=== PATIENT | female | born 1990 | race Caucasian/White ===

== ENCOUNTER 2019-10-06 10:45 | Outpatient (CLI) | payer BC | END 2019-10-06 11:40 | disposition home or self-care (01) | LOC: LC 10:45 | PROVIDERS: ATTEND Obstetrics & Gynecology | PROC: 4A1HXCZ Monitoring of Products of Conception, Cardiac Rate, External Approach (ICD-10-PCS; principal; 2019-10-06) | DX: Z34.93 Encounter for supervision of normal pregnancy, unspecified, third trimester (principal); Z3A.35 35 weeks gestation of pregnancy | CPT/HCPCS: 59025 ==

== ENCOUNTER 2019-10-12 08:37 | Inpatient (IN) | payer BC ==
[2019-10-12] MEDS ORDERED: RINGERS SOLUTION,LACTATED 1,000 ML IV ONE (09:14)
[2019-10-12] MEDS ORDERED: ALBUTEROL SULFATE 0.083% NEB 2.5 MG/3 ML AMPUL NEB ONE ×2 (09:21→09:37)
--- NOTE | 2019-10-12 09:35 | Admission Physical ---
Datetime Report Generated by CPN: 10/12/2019 09:35 CURRENT ADMISSION Chief Complaint: Sent from OB Office for Evaluation and Treatment - Please Specify Chief Complaint Other: patient with recent dx and treatment for bronchitis. Has had CHTN/GHTN throughout . severe range BPs at office. Sent for eval of bronchitis and Pre E workup. 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 indicates a sick child at home with an ear infection. Admit Impression : , Intrauterine Admit Plan: Admit to Unit; Observation/Evaluation ALLERGIES Medication Allergies: No Medication Allergies: No Known Allergies (10/12/2019) Latex: No Latex Allergies OBSTETRICAL HISTORY EDC: 11/04/2019 00:00 : 3 Para: 2 Term: 2 : 0 SAB: 0 IAB: 0 Ectopic: 0 Livin Cesareans: 0 VBACs: 0 Multiple Births: 0 PHYSICAL EXAM General: Normal HEENT: Normal Neurologic: Normal Thyroid: Normal Heart: Normal Lungs: Normal Breast: Normal Back: Normal Abdomen: Normal Genitourinary Exam: Normal Extremities: Normal DTRs: Normal Pelvic Type: Adequate Vital Signs: Reviewed FETUS A EGA: 36.5 Monitoring: External US FHR- Baseline: 140 Variability: Moderate 6-25bpm Accelerations: 15X15 Decelerations: None FHR Category: Category I Estimated Weight (gm): 3000 Admit Comment: admit for Pre E workup and evaluation for possible flu. Quarantine precautions. Nebulizer, CXR and labs ordered. Start Tamiflu although symptoms have been present greater than 5 days. INFORMED CONSENT Signature: with User ID: [email or web address]
[2019-10-12 10:12] LABS: ABSOLUTE EOSINOPHILS # (AUTO) 0.4 10^3/uL (0.0-0.6); ABSOLUTE LYMPHOCYTES (AUTO) 1.4 10^3/uL (0.5-4.7); ABSOLUTE MONOCYTES (AUTO) 0.7 10^3/uL (0.1-1.4); ABSOLUTE NEUT (AUTO) 7.4 10^3/uL (1.7-8.2); BASOPHILS % (AUTO) 0.5 % (0-2); EOSINOPHILS % (AUTO) 4.2 % (0-6); HEMATOCRIT 31.1 % (36.0-47.0); HEMOGLOBIN 10.6 g/dL (12.0-15.5); LYMPHOCYTES % (AUTO) 14.4 % (13-45); MEAN CORPUSCULAR HEMOGLOBIN 29.9 pg (27.0-33.4); MEAN CORPUSCULAR HGB CONC 34.2 g/dL (32.0-36.0); MEAN CORPUSCULAR VOLUME 88 fl (80-97); MONOCYTES % (AUTO) 7.2 % (3-13); PLATELET COUNT 267 10^3/uL (150-450); RED BLOOD COUNT 3.55 10^6/uL (3.72-5.28); RED CELL DISTRIBUTION WIDTH 15.4 % (11.5-14.0); SEGMENTED NEUTROPHILS % (AUTO) 73.7 % (42-78); TOTAL CELLS COUNTED % (AUTO) 100 %; WHITE BLOOD COUNT 10.1 10^3/uL (4.0-10.5)
[2019-10-12 10:22] LABS: A TYPE INFLUENZA AG NEGATIVE (NEGATIVE); B INFLUENZA AG NEGATIVE (NEGATIVE)
[2019-10-12 10:24] LABS: UR PRO/CREAT RATIO RESULT 0.6 mg/mg (0.0-0.2); URINE CREATININE 30.6 mg/dL (16-327); URINE PROTEIN 18.1 mg/dL (<12)
[2019-10-12 10:29] LABS: ALBUMIN 3.3 g/dL (3.5-5.0); ALKALINE PHOSPHATASE 131 U/L (38-126); ANION GAP 8 (5-19); ASPARTATE AMINO TRANSFERASE 24 U/L (14-36); BILIRUBIN,DIRECT 0.3 mg/dL (0.0-0.4); BILIRUBIN,TOTAL 0.4 mg/dL (0.2-1.3); BLOOD UREA NITROGEN 8 mg/dL (7-20); CALCIUM 8.6 mg/dL (8.4-10.2); CARBON DIOXIDE 22 mmol/L (22-30); CHLORIDE 104 mmol/L (98-107); GLUCOSE 116 mg/dL (75-110); POTASSIUM 3.8 mmol/L (3.6-5.0); TOTAL PROTEIN 6.4 g/dL (6.3-8.2); URIC ACID 4.5 mg/dL (2.5-6.2)
--- NOTE | 2019-10-12 10:33 | RADIOLOGY REPORT (SQ) ---
EXAM DESCRIPTION: CHEST SINGLE VIEW COMPLETED DATE/TIME: 10/12/2019 10:21 am REASON FOR STUDY: bronchitis COMPARISON: None. EXAM PARAMETERS: NUMBER OF VIEWS: One view. TECHNIQUE: An AP view of the chest was obtained. RADIATION DOSE: NA LIMITATIONS: None. FINDINGS: LUNGS AND PLEURA: No consolidation, pleural effusion or pneumothorax. MEDIASTINUM AND HILAR STRUCTURES: No mediastinal or hilar contour abnormality. HEART AND VASCULAR STRUCTURES: The cardiac silhouette and pulmonary vasculature are within normal lugo its. BONES: No acute findings. HARDWARE: None in the chest. OTHER: No other finding. IMPRESSION: No acute cardiopulmonary process. TECHNICAL DOCUMENTATION: JOB ID: [id number] 2011 [employer]- All Rights Reserved Reading location - IP/workstation name: [email or web address]
[2019-10-12] MEDS: OSELTAMIVIR PHOSPHATE 75 MG CAPSULE PO SCH ×2 (10:52→18:16)
[2019-10-12] MEDS: BENZONATATE 100 MG CAPSULE PO PRN (15:24)
[2019-10-13] MEDS ORDERED: BETAMET ACET/BETAMET NA INJ 6 MG/1 ML ONE ×3 (08:12→22:37)
[2019-10-13] MEDS ORDERED: BETAMET ACET/BETAMET NA INJ 6 MG/1 ML IM ONE (08:14)
[2019-10-13 08:22] LABS: ABSOLUTE BASOPHILS # (AUTO) 0.1 10^3/uL (0.0-0.2); ABSOLUTE EOSINOPHILS # (AUTO) 0.4 10^3/uL (0.0-0.6); ABSOLUTE LYMPHOCYTES (AUTO) 1.8 10^3/uL (0.5-4.7); ABSOLUTE MONOCYTES (AUTO) 0.9 10^3/uL (0.1-1.4); ABSOLUTE NEUT (AUTO) 7.1 10^3/uL (1.7-8.2); BASOPHILS % (AUTO) 0.6 % (0-2); EOSINOPHILS % (AUTO) 3.8 % (0-6); HEMATOCRIT 34.3 % (36.0-47.0); HEMOGLOBIN 11.4 g/dL (12.0-15.5); LYMPHOCYTES % (AUTO) 17.6 % (13-45); MEAN CORPUSCULAR HEMOGLOBIN 29.3 pg (27.0-33.4); MEAN CORPUSCULAR HGB CONC 33.3 g/dL (32.0-36.0); MEAN CORPUSCULAR VOLUME 88 fl (80-97); PLATELET COUNT 283 10^3/uL (150-450); RED CELL DISTRIBUTION WIDTH 15.7 % (11.5-14.0); TOTAL CELLS COUNTED % (AUTO) 100 %; WHITE BLOOD COUNT 10.2 10^3/uL (4.0-10.5)
[2019-10-13 08:46] LABS: ALBUMIN 3.4 g/dL (3.5-5.0); ALKALINE PHOSPHATASE 135 U/L (38-126); ANION GAP 5 (5-19); ASPARTATE AMINO TRANSFERASE 24 U/L (14-36); BILIRUBIN,TOTAL 0.6 mg/dL (0.2-1.3); BLOOD UREA NITROGEN 8 mg/dL (7-20); CALCIUM 8.9 mg/dL (8.4-10.2); CARBON DIOXIDE 26 mmol/L (22-30); CHLORIDE 103 mmol/L (98-107); GLUCOSE 71 mg/dL (75-110); POTASSIUM 4.5 mmol/L (3.6-5.0); TOTAL PROTEIN 6.3 g/dL (6.3-8.2)
[2019-10-13] MEDS: BENZONATATE 100 MG CAPSULE PO PRN ×2 (09:49→22:16)
[2019-10-13] MEDS: OSELTAMIVIR PHOSPHATE 75 MG CAPSULE PO SCH ×2 (09:49→17:44)
--- NOTE | 2019-10-13 09:55 | Non Stress Test Report ---
Non Stress Test Datetime Report Generated by CPN: 10/13/2019 09:55 DEMOGRAPHIC EGA NST: 36.6 INDICATION Indication for Study (NST) Other: obs pt, NST q shift VITAL SIGNS Temperature - NST: 98.1 Pulse - NST: 99 RESP - NST: 15 NBPSYS NST: 145 NBPDIA NST: 70 MONITORING Monitor Explained: Monitor Explained; Test Explained; Patient Verbalized Understanding Time on Monitor: 10/13/2019 08:55 Time off Monitor: 10/13/2019 09:47 NST Duration: 52 NST INTERVENTIONS NST Interventions: PO Hydration; IV Fluids; Meal Given; Reposition Patient Physician Notified NST: N Corbett CNM BABY A Movement : Present Contraction Frequency : none FHR Baseline : 145 Accelerations : 15X15 Decelerations : None Variability : Moderate 6-25bpm NST Review: Meets Criteria for Reactive NST NST Review and Verified By : Vicki Herbert RN NST Results: Reactive NST REPORT Report Trigger: Send Report
[2019-10-13] MEDS ORDERED: PENICILLIN G-K 5 MILLION UNIT VIAL ONE (22:27)
[2019-10-14 06:52] LABS: 24 HOUR URINE PROTEIN RESULT 482 mg/day (42-225); URINE PROTEIN 12.1 mg/dL (<12)
[2019-10-14] MEDS: BENZONATATE 100 MG CAPSULE PO PRN ×2 (08:27→18:37)
[2019-10-14 08:57] LABS: ABSOLUTE BASOPHILS # (AUTO) 0.1 10^3/uL (0.0-0.2); ABSOLUTE LYMPHOCYTES (AUTO) 1.8 10^3/uL (0.5-4.7); ABSOLUTE NEUT (AUTO) 12.1 10^3/uL (1.7-8.2); BASOPHILS % (AUTO) 0.7 % (0-2); EOSINOPHILS % (AUTO) 0.1 % (0-6); HEMATOCRIT 35.4 % (36.0-47.0); HEMOGLOBIN 11.6 g/dL (12.0-15.5); LYMPHOCYTES % (AUTO) 11.8 % (13-45); MEAN CORPUSCULAR HEMOGLOBIN 28.9 pg (27.0-33.4); MEAN CORPUSCULAR HGB CONC 32.9 g/dL (32.0-36.0); MEAN CORPUSCULAR VOLUME 88 fl (80-97); MONOCYTES % (AUTO) 6.5 % (3-13); PLATELET COUNT 325 10^3/uL (150-450); RED BLOOD COUNT 4.02 10^6/uL (3.72-5.28); RED CELL DISTRIBUTION WIDTH 16.3 % (11.5-14.0); SEGMENTED NEUTROPHILS % (AUTO) 80.9 % (42-78); TOTAL CELLS COUNTED % (AUTO) 100 %
[2019-10-14] MEDS ORDERED: OXYTOCIN 10 UNIT/ML VIAL ONE (09:08)
[2019-10-14] MEDS ORDERED: MISOPROSTOL 0.2 MG TABLET ONE (09:08)
[2019-10-14] MEDS ORDERED: OXYTOCIN/NORMAL SALINE 20 UNIT/1,000 ML RTUINJ ONE (09:08)
[2019-10-14] MEDS ORDERED: LIDOCAINE 1% INJ-PF (10 MG/ML) 30 ML SDV ONE (09:08)
[2019-10-14 09:11] LABS: ALBUMIN 3.9 g/dL (3.5-5.0); ALKALINE PHOSPHATASE 143 U/L (38-126); ANION GAP 10 (5-19); ASPARTATE AMINO TRANSFERASE 35 U/L (14-36); BILIRUBIN,TOTAL 0.6 mg/dL (0.2-1.3); BLOOD UREA NITROGEN 10 mg/dL (7-20); CALCIUM 9.4 mg/dL (8.4-10.2); CARBON DIOXIDE 24 mmol/L (22-30); CHLORIDE 101 mmol/L (98-107); GLUCOSE 104 mg/dL (75-110); TOTAL PROTEIN 7.2 g/dL (6.3-8.2); URIC ACID 5.7 mg/dL (2.5-6.2)
[2019-10-14] MEDS ORDERED: HYDROXYZINE PAMOATE 50 MG CAPSULE ONE (09:27)
[2019-10-14] MEDS ORDERED: BETAMET ACET/BETAMET NA INJ 6 MG/1 ML ONE (09:56)
[2019-10-14] MEDS ORDERED: HYDROXYZINE PAMOATE 50 MG CAPSULE PO ONE (09:56)
[2019-10-14] MEDS ORDERED: BETAMET ACET/BETAMET NA INJ 6 MG/1 ML IM ONE (09:57)
[2019-10-14] MEDS: OSELTAMIVIR PHOSPHATE 75 MG CAPSULE PO SCH ×2 (10:59→18:28)
[2019-10-14] MEDS ORDERED: EPHEDRINE SULFATE INJ 50 MG/1 ML AMPULE ONE (13:12)
[2019-10-14] MEDS ORDERED: BUPIVACAINE HCL 0.25 % INJ/PF (2.5 MG/1 ML) 30 ML VIAL ONE (13:13)
[2019-10-14] MEDS ORDERED: FENTANYL/BUPIVACAINE/NS/PF 300 MCG/150 ML RTUINJ EPI ONE (13:13)
[2019-10-14] MEDS ORDERED: FENTANYL CITRATE INJ/PF 100 MCG/2 ML AMPUL ONE (13:15)
[2019-10-14] MEDS ORDERED: PSEUDOEPHEDRINE HCL 30 MG TABLET PO PRN (18:35)
[2019-10-14] MEDS ORDERED: MEASLES,MUMPS&RUBELLA VACC/PF 0.5 ML VIAL SUBCUT PRN (18:35)
[2019-10-14] MEDS ORDERED: NA PHOS,M-B/NA PHOS,DI-BA (ADULT) 133 ML ENEMA PR PRN (18:35)
[2019-10-14] MEDS ORDERED: ZOLPIDEM TARTRATE 5 MG TABLET PO PRN (18:35)
[2019-10-14] MEDS ORDERED: BENZOCAINE/MENTHOL AEROSOL SPRAY 56 ML TOP PRN (18:35)
[2019-10-14] MEDS ORDERED: DIPHENHYDRAMINE HCL 25 MG CAPSULE PO PRN (18:35)
[2019-10-14] MEDS ORDERED: PROMETHAZINE HCL 25 MG SUPP.RECT PR PRN (18:35)
[2019-10-14] MEDS ORDERED: ACETAMINOPHEN WITH CODEINE #3 TABLET PO PRN ×2 (18:35)
[2019-10-14] MEDS ORDERED: OXYTOCIN/NORMAL SALINE 20 UNIT/1,000 ML RTUINJ IV PRN (18:35)
[2019-10-14] MEDS ORDERED: ACETAMINOPHEN 650 MG SUPP.RECT PR PRN (18:35)
[2019-10-14] MEDS ORDERED: GLYCERIN/WITCH HAZEL LEAF 1 EACH MED..WIPE TP PRN (18:35)
[2019-10-14] MEDS ORDERED: MAGNESIUM HYDROXIDE SUSP 30 ML UDCUP PO PRN (18:35)
[2019-10-14] MEDS ORDERED: DIBUCAINE 1% OINTMENT 28 GM TP PRN (18:35)
[2019-10-14] MEDS ORDERED: PROMETHAZINE HCL INJ 25 MG/1 ML VIAL IV PRN (18:35)
[2019-10-14] MEDS ORDERED: DIPH/PERTUSS(ACELL)/TETANUS VAC/PF 0.5 ML SYR (>=10YO) IM PRN (18:35)
[2019-10-14] MEDS ORDERED: PROMETHAZINE HCL 25 MG TABLET PO PRN (18:35)
[2019-10-14] MEDS ORDERED: FERROUS SULFATE 325 MG TABLET PO ONE (19:57)
[2019-10-14] MEDS ORDERED: IBUPROFEN 800 MG TABLET ONE (19:57)
[2019-10-14] MEDS: FERROUS SULFATE 325 MG TABLET PO SCH (19:59)
[2019-10-14] MEDS: IBUPROFEN 800 MG TABLET PO SCH (19:59)
--- NOTE | 2019-10-14 20:50 | Delivery Summary ---
Del Sum A-C Datetime Report Generated by CPN: 10/14/2019 20:49 DELIVERY PERSONNEL DELIVERY PERSONNEL: [id number] Delivery Doctor:: Delilah Sheehan MD Labor and Delivery Nurse:: Mesha Burden RNheel painter Nurse:: Mindy Flores RN Nursery Nurse:: Aida Santana RN/ AFTER 5 MIN Mannequin Mounter/AUDITING CONTROL CLERK: Bre Ocampo MANAGER [employer] Additional Personnel: : Octavia Aggarwal RN MATERNAL INFORMATION Delivery Anesthesia: Epidural Medications After Delivery: Pitocin Bolus-Please Comment; Pitocin Drip 20 Units/1000ml NSS Meds After Delivery Comment: 20 units in 1000mL NS open bolus Estimated Blood Loss (ml): 100 Delivery QBL: 50 Provider Comments: Called to patients room with complete dilation and +2 station. She pushed through two contractions and delivered viable female . Perineum intact. After delivery of the head, the shoulders and rest of the body delivered easily. She was small but vigorous at delivery. Oral and nasal suctioning. Cord clamping delayed but the cord flow appeared stopped prior to 30 seconds so cord was cut. Infant to mothers chest for skin to skin. After she was placed in warmer, Nursery notified to assess due to work of breathing. Both mother and stable LABOR SUMMARY EDC: 11/04/2019 00:00 No. Babies in Womb: 1 Attempted: No Labor Anesthesia: Epidural LABOR INFORMATION Reason for Induction: Pre-Eclampsia Onset of Labor: 10/14/2019 16:47 Complete Dilatation: 10/14/2019 17:58 Oxytocin: Induction Group B Beta Strep: negative Antibiotics # of Doses: 0 Steroids Given: Full Course Reason Steroids Not Administered: Not Applicable MEMBRANES Membranes Rupture Method: Artificial Rupture of Membranes: 10/14/2019 16:45 Length of Rupture (hr): 1.38 Amniotic Fluid Color: Clear Amniotic Fluid Amount: Moderate STAGES OF LABOR Stage 1 hr: 1 Stage 1 min: 11 Stage 2 hr: 0 Stage 2 min: 10 Stage 3 hr: 0 Stage 3 min: 7 Total Time in Labor hr: 1 Total Time in Labor min: 28 VAGINAL DELIVERY Episiotomy: None Laceration #1: None Laceration Extension #1: N/A Other Laceration: LT SUPERFICIAL LABIAL LAC Laceration Repair: No Sponge Count Correct: N/A Sharps Count Correct: N/A BABY A INFORMATION Infant Delivery Date/Time: 10/14/2019 18:08 Method of Delivery: Vaginal Nurse Controlled Delivery: No Born in Route : No : N/A Forceps: N/A Vacuum Extraction: N/A Shoulder Dystocia : No PRESENTATION/POSITION BABY A Presentation: Cephalic Cephalic Presentation: Vertex Vertex Position: Left Occipital Anterior Breech Presentation: N/A PLACENTA INFORMATION BABY A Placenta Delivery Time : 10/14/2019 18:15 Placenta Method of Delivery: Spontaneous Placenta Status: Delivered SCORES BABY A Heart Rate 1 min: >100 bpm Resp Effort 1 min: Good Cry Reflex Irritability 1 min: Cough or Sneeze or Pulls Away Muscle Tone 1 min: Some Flexion of Extremities Color 1 min: Blue/Pale Resuscitation Effort 1 min: Tactile Stimulation SCORE 1 MIN: 7 Heart Rate 5 min: >100 bpm Resp Effort 5 min: Good Cry Reflex Irritability 5 min: Cough or Sneeze or Pulls Away Muscle Tone 5 min: Some Flexion of Extremities Color 5 min: Body [place], Extremities Blue Resuscitation Effort 5 min: Tactile Stimulation SCORE 5 MIN: 8 INFORMATION BABY A Gestational Age at Delivery: 37.0 Gestational Status: Early Term- 37- 38.6 Weeks Infant Outcome : Liveborn Condition : Stable Infant Sex: Female IDENTIFICATION BABY A Verification Date/Time: 10/14/2019 18:19 ID Band Number: [id number] Mother's Name Verified: Yes Infant RN Verifying Infant: SHAVONNE FLORES, RN/ C DES, RN WEIGHT/LENGTH BABY A Infant Birthweight (gm): 2735 Infant Weight (lb): 6 Infant Weight (oz): 0 Infant Length (in): 18.00 Infant Length (cm): 45.72 CORD INFORMATION BABY A No. Cord Vessels: 3 Nuchal Cord : N/A Cord Blood Taken: Yes-For Storage (Mom's Blood type +) Suction: Mouth; Nose ASSESSMENT BABY A Infant Complications: Multiple Late Decels; Multiple Variable Decels Physical Findings at Delivery: Within Normal Limits Infant Respirations: Appears Normal Skin to Skin: No Staff Developer/ALS Called : No Care By: Filipe AGGARWAL RN/ Rohith BACTAC RN Transferred To: Nursery BABY B INFORMATION : N/A SIGNATURES Signature: with User ID: [email or web address] : with User ID: [email or web address]
[2019-10-14] MEDS ORDERED: FAMOTIDINE 20 MG TABLET ONE (22:04)
[2019-10-14] MEDS: FAMOTIDINE 20 MG TABLET PO SCH (22:05)
[2019-10-15] MEDS: IBUPROFEN 800 MG TABLET PO SCH ×4 (06:00→21:39)
[2019-10-15 06:54] LABS: HEMATOCRIT 32.1 % (36.0-47.0); HEMOGLOBIN 10.9 g/dL (12.0-15.5); MEAN CORPUSCULAR HEMOGLOBIN 30.1 pg (27.0-33.4); MEAN CORPUSCULAR VOLUME 89 fl (80-97); PLATELET COUNT 293 10^3/uL (150-450); RED BLOOD COUNT 3.62 10^6/uL (3.72-5.28); RED CELL DISTRIBUTION WIDTH 16.3 % (11.5-14.0); WHITE BLOOD COUNT 15.9 10^3/uL (4.0-10.5)
[2019-10-15] MEDS: BENZONATATE 100 MG CAPSULE PO PRN ×2 (09:19→17:57)
[2019-10-15] MEDS: DOCUSATE SODIUM 100 MG CAPSULE PO SCH ×2 (09:19→17:53)
[2019-10-15] MEDS: PRENATAL VITAMIN W DHA CAPSULE PO SCH (09:19)
[2019-10-15] MEDS: SENNOSIDES/DOCUSATE 8.6-50 MG 1 EACH TABLET PO SCH (09:19)
[2019-10-15] MEDS: OSELTAMIVIR PHOSPHATE 75 MG CAPSULE PO SCH ×2 (09:19→18:15)
[2019-10-15] MEDS: FAMOTIDINE 20 MG TABLET PO SCH ×2 (09:19→21:39)
[2019-10-15] MEDS: FERROUS SULFATE 325 MG TABLET PO SCH ×2 (09:19→17:53)
--- NOTE | 2019-10-15 10:29 | PDOC PROGRESS REPORT ---
Subjective-OB Progress Note for:: 10/15/19 Subjective: Pt doing well, no concerns. Reports light bleeding, reg diet and voiding without difficulty. Physical Exam (OB) Vital Signs: Temp Pulse Resp BP Pulse Ox 97.6 F 80 22 H 152/75 H 100 10/15/19 07:22 10/15/19 07:22 10/15/19 07:22 10/15/19 07:22 10/15/19 07:22 - PIH/Pre-Eclampsia DTR's: 2 + Clonus: Negative Headache: Absent Epigastric Pain: No Visual Changes: No - Lochia Lochia Amount: Small 10-25 ml Lochia Color: Rubra/Red - Abdomen Description: Soft Hernia Present: No Fundal Description: Firm, Midline Fundal Height: u/u - u/2 Objective-Diagnostic Laboratory: 10/15/19 06:38 10/14/19 08:25 10/14/19 10/15/19 19:17 06:38 WBC 15.9 H RBC 3.62 L Hgb 10.9 L Hct 32.1 L MCV 89 MCH 30.1 MCHC 34.0 RDW 16.3 H Plt Count 293 Blood Type A POSITIVE Antibody Screen NEGATIVE Assessment and Plan(PN) - Assessment and Plan (1) Gestational hypertension Qualifiers: Trimester: third trimester Is this a current diagnosis for this admission?: Yes (2) Vaginal delivery Is this a current diagnosis for this admission?: Yes - Time Spent with Patient Time with patient: Less than 15 minutes Medications reviewed and adjusted accordingly: Yes - Disposition Anticipated Discharge: Home Within: within 24 hours
[2019-10-16] MEDS: IBUPROFEN 800 MG TABLET PO SCH ×2 (07:55→14:10)
[2019-10-16] MEDS: FERROUS SULFATE 325 MG TABLET PO SCH ×2 (09:22→17:27)
[2019-10-16] MEDS: PRENATAL VITAMIN W DHA CAPSULE PO SCH (09:22)
[2019-10-16] MEDS: FAMOTIDINE 20 MG TABLET PO SCH (09:22)
[2019-10-16] MEDS: OSELTAMIVIR PHOSPHATE 75 MG CAPSULE PO SCH ×2 (09:22→17:27)
[2019-10-16] MEDS: SENNOSIDES/DOCUSATE 8.6-50 MG 1 EACH TABLET PO SCH (09:22)
[2019-10-16] MEDS: BENZONATATE 100 MG CAPSULE PO PRN (09:22)
[2019-10-16] MEDS: DOCUSATE SODIUM 100 MG CAPSULE PO SCH ×2 (09:22→17:27)
[2019-10-16 11:48] VITALS: BP 133/79
--- NOTE | 2019-10-16 13:20 | PDOC DISCHARGE SUMMARY ---
Impression - Admit/DC Date/PCP Admission Date/Primary Care Provider: 10/12/19 10:51 BELEN KERN NP Discharge Date: 10/16/19 - Discharge Diagnosis (1) delivery Is this a current diagnosis for this admission?: Yes (2) Upper respiratory infection Is this a current diagnosis for this admission?: Yes (3) Pre-eclampsia Is this a current diagnosis for this admission?: Yes (4) Vaginal delivery Is this a current diagnosis for this admission?: Yes - Additional Information Discharge Diet: Regular Discharge Activity: Activity As Tolerated, Pelvic Rest Referrals: [facility] [Provider Group] (Please call and schedule a 1 week blood pressure check at [facility]. ) Prescriptions: Ibuprofen [Motrin 800 mg Tablet] 800 mg PO Q8HP PRN #60 tablet PRN Reason: Benzonatate [Tessalon Perles 100 mg Capsule] 200 mg PO Q8HP PRN #60 capsule PRN Reason: Home Medications: 95/Iron Fum/Folic/Dha [ + Dha Combo Pack] 1 tab PO DAILY 02/13/16 Albuterol Sulfate [Proair HFA Inhalation Aerosol 8.5 gm MDI] 2 puff IH Q4 PRN 10/06/19 Benzocaine/Menthol [Dermoplast Aerosol [place] 56 ml] 1 applic TOP PRN PRN can 0 10/16/19 Benzonatate [Tessalon Perles 100 mg Capsule] 200 mg PO Q8HP PRN #60 capsule 10/16/19 Ibuprofen [Motrin 800 mg Tablet] 800 mg PO Q8HP PRN #60 tablet 10/16/19 HPI Reason(s) for Admission: Induction of Labor Procedures: NST Intrapartum Procedure(s): Spontaneous Vaginal Delivery Complication(s): Laceration-Labial Results Laboratory Results: WBC 15.9 10^3/uL (4.0-10.5) H 10/15/19 06:38 RBC 3.62 10^6/uL (3.72-5.28) L 10/15/19 06:38 Hgb 10.9 g/dL (12.0-15.5) L 10/15/19 06:38 Hct 32.1 % (36.0-47.0) L 10/15/19 06:38 MCV 89 fl (80-97) 10/15/19 06:38 MCH 30.1 pg (27.0-33.4) 10/15/19 06:38 MCHC 34.0 g/dL (32.0-36.0) 10/15/19 06:38 RDW 16.3 % (11.5-14.0) H 10/15/19 06:38 Plt Count 293 10^3/uL (150-450) 10/15/19 06:38 Lymph % (Auto) 11.8 % (13-45) L 10/14/19 08:25 [place] % (Auto) 6.5 % (3-13) 10/14/19 08:25 Eos % (Auto) 0.1 % (0-6) 10/14/19 08:25 Baso % (Auto) 0.7 % (0-2) 10/14/19 08:25 Absolute Neuts (auto) 12.1 10^3/uL (1.7-8.2) H 10/14/19 08:25 Absolute Lymphs (auto) 1.8 10^3/uL (0.5-4.7) 10/14/19 08:25 Absolute Monos (auto) 1.0 10^3/uL (0.1-1.4) 10/14/19 08:25 Absolute Eos (auto) 0.0 10^3/uL (0.0-0.6) 10/14/19 08:25 Absolute Basos (auto) 0.1 10^3/uL (0.0-0.2) 10/14/19 08:25 Seg Neutrophils % 80.9 % (42-78) H 10/14/19 08:25 Sodium 135.0 mmol/L (137-145) L 10/14/19 08:25 Potassium 4.0 mmol/L (3.6-5.0) 10/14/19 08:25 Chloride 101 mmol/L (98-107) 10/14/19 08:25 Carbon Dioxide 24 mmol/L (22-30) 10/14/19 08:25 Anion Gap 10 (5-19) 10/14/19 08:25 BUN 10 mg/dL (7-20) 10/14/19 08:25 Creatinine 0.46 mg/dL (0.52-1.25) L 10/14/19 08:25 Est GFR ( Amer) > 60 (>60) 10/14/19 08:25 Est GFR (MDRD) Non-Af > 60 (>60) 10/14/19 08:25 Glucose 104 mg/dL (75-110) 10/14/19 08:25 Uric Acid 5.7 mg/dL (2.5-6.2) 10/14/19 08:25 Calcium 9.4 mg/dL (8.4-10.2) 10/14/19 08:25 Total Bilirubin 0.6 mg/dL (0.2-1.3) 10/14/19 08:25 Direct Bilirubin 0.0 mg/dL (0.0-0.4) 10/14/19 08:25 Neonat Total Bilirubin Not Reportable 10/14/19 08:25 Neonat Direct Bilirubin Not Reportable 10/14/19 08:25 Neonat Indirect Bili Not Reportable 10/14/19 08:25 AST 35 U/L (14-36) 10/14/19 08:25 ALT 26 U/L (<35) 10/14/19 08:25 Alkaline Phosphatase 143 U/L (38-126) H 10/14/19 08:25 Lactate Dehydrogenase 194 U/L (120-246) 10/14/19 08:25 Total Protein 7.2 g/dL (6.3-8.2) 10/14/19 08:25 Albumin 3.9 g/dL (3.5-5.0) 10/14/19 08:25 Ur 24 Hour Volume 3980 mL 10/13/19 06:00 Urine Creatinine 30.6 mg/dL (16-327) 10/12/19 08:45 Ur Total Protein 24 Hr 482 mg/day (42-225) H 10/13/19 06:00 Protein/Creatinin Ratio 0.6 mg/mg (0.0-0.2) H 10/12/19 08:45 Urine Total Protein 12.1 mg/dL (<12) H 10/13/19 06:00 RPR NONREACTIVE (NONREACTIVE) 10/14/19 19:17 Influenza A (Rapid) NEGATIVE (NEGATIVE) 10/12/19 09:18 Influenza B (Rapid) NEGATIVE (NEGATIVE) 10/12/19 09:18 Blood Type A POSITIVE 10/14/19 19:17 Antibody Screen NEGATIVE 10/14/19 19:17 Impressions: Chest X-Ray 10/12/19 00:00 IMPRESSION: No acute cardiopulmonary process. Plan Plan of Treatment: follow up in 1 week at [facility] for BP check. go to PCM for upper respiratory symptoms worsening
--- NOTE | 2019-10-16 13:21 | Progress Note ---
Provider Note Provider Note: lung sounds clear except scattered wheezes. will get nebulizer before discharge
[2019-10-16] MEDS ORDERED: ALBUTEROL SULFATE 0.083% NEB 2.5 MG/3 ML AMPUL NEB ONE (13:46)
== END 2019-10-16 18:56 | disposition home or self-care (01) | DRG 807 ==
LOC: LC 08:37 → LR 10:51 → 2N 10-14 22:20
PROVIDERS: ADMIT Obstetrics & Gynecology; ATTEND Obstetrics & Gynecology
PROC: 10E0XZZ Delivery of Products of Conception, External Approach (ICD-10-PCS; principal; 2019-10-14)
PROC: 0UQMXZZ Repair Vulva, External Approach (ICD-10-PCS; 2019-10-14)
DX: O11.4 Pre-existing hypertension with pre-eclampsia, complicating childbirth (principal); Z37.0 Single live birth; O10.02 Pre-existing essential hypertension complicating childbirth; O70.0 First degree perineal laceration during delivery; O76 Abnormality in fetal heart rate and rhythm complicating labor and delivery; O99.334 Smoking (tobacco) complicating childbirth; F17.211 Nicotine dependence, cigarettes, in remission; Z3A.36 36 weeks gestation of pregnancy
CPT/HCPCS: 36415; 59025; 71045; 80053; 82570; 83615; 84156; 84550; 85025; 85027; 86592; 86850; 86900; 86901; 87804; 88307; 94640; 94667; J0702; J2540; J2590; J3010; J3490